=== PATIENT | female | born 1975 | race Caucasian/White ===

== ENCOUNTER 2020-02-17 06:04 | Day surgery (SDC) | payer OTHER ==
[2020-02-16 11:25] VITALS: BMI 18.4
[2020-02-17] MEDS ORDERED: ONDANSETRON 4 MG/2 ML VIAL IVPUSH PRN ×2 (08:09→10:19)
[2020-02-17] MEDS ORDERED: PROMETHAZINE HCL 25 MG/1 ML VIAL IVPB PRN (08:09)
[2020-02-17] MEDS ORDERED: oxyCODONE HCL 5 MG TABLET PO PRN ×2 (08:09→10:19)
[2020-02-17] MEDS ORDERED: LACTATED RINGERS SOLUTION 1,000 ML IV SCH (08:15)
[2020-02-17] MEDS ORDERED: MIDAZOLAM HCL 2 MG/2 ML SINGLE DOSE VIAL ONE (09:28)
[2020-02-17] MEDS ORDERED: LIDOCAINE HCL/PF 2% SDV 5ML VIAL ONE (09:28)
[2020-02-17] MEDS ORDERED: PROPOFOL 20 ML ONE (09:28)
[2020-02-17] MEDS ORDERED: KETOROLAC TROMETHAMINE 30 MG/1 ML VIAL ONE (09:43)
[2020-02-17] MEDS ORDERED: IBUPROFEN 800 MG/8 ML IJ IVPB PRN (10:19)
[2020-02-17] MEDS ORDERED: IBUPROFEN 600 MG TABLET (FP) PO PRN (10:19)
[2020-02-17] MEDS ORDERED: ELECTROLYTE-148 SOLN 1,000 ML IV SCH (10:30)
[2020-02-17 11:24] VITALS: TEMP 97.7
[2020-02-17] MEDS ORDERED: oxyCODONE HCL 5 MG TABLET ONE (11:48)
[2020-02-17 13:17] VITALS: BP 120/60; PULSE 64
== END 2020-02-17 13:10 | disposition home or self-care (01) ==
LOC: JASU-SURG 06:04
PROVIDERS: ATTEND Obstetrics & Gynecology
PROC: 0UJD8ZZ Inspection of Uterus and Cervix, Via Natural or Artificial Opening Endoscopic (ICD-10-PCS; 2020-02-17)
PROC: 0UB97ZX Excision of Uterus, Via Natural or Artificial Opening, Diagnostic (ICD-10-PCS; principal; 2020-02-17 09:00)
PROC: 0UDB7ZX Extraction of Endometrium, Via Natural or Artificial Opening, Diagnostic (ICD-10-PCS; 2020-02-17 09:00)
DX: N92.1 Excessive and frequent menstruation with irregular cycle (principal); N84.0 Polyp of corpus uteri
CPT/HCPCS: 84703; 88305-TC; 94760